=== PATIENT | male | born 1970 | race Caucasian/White ===

== ENCOUNTER 2018-04-23 13:15 | Outpatient (RCR) | payer MEDICARE, SELFPAY ==
[2018-04-23 14:04] VITALS: BP 152/100; PULSE 105; RESP 20; TEMP 36.6
--- NOTE | 2018-04-23 16:50 | PCM.WC.HP ---
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 4 weeks. They started with blisters opening on left leg. He has been treated here for similar problem and did not want his wounds to become as bad as they were previously so he referred himself here for treatment. He has been putting hydrogel and adaptic and covering them with gauze. He has been using tubigrips but they are not helping with swelling as much as they had previously. He has used spandigrip in past as well. He has been unable to tolerate or properly apply compression stockings. His vascular studies from December 2015 showed that he has incompetent left GSV but otherwise unremarkable and no evidence of significant arterial disease. He has not been taking any of his medications until recently due to loss of precription medication coverage. He denies any signs of infection currently. Has been elevating his feet often. Past Medical History Past Medical History: Chronic Problems Peripheral arterial disease (Chronic) Hypertension (Chronic) H/O myocardial infarction, greater than 8 weeks (Chronic) Lymphedema of both lower extremities (Chronic) Hyperlipidemia (Chronic) Venous stasis ulcer of left lower extremity (Chronic) CAD (coronary artery disease) (Chronic) Type 2 diabetes mellitus (Chronic) Surgical History: - - left meniscal repair, B CTR, umbilical hernia repair, heart cath and stent x1 Allergies/Adverse Reactions: Allergies cefazolin sodium [From Ancef] Allergy (Verified 12/19/15 15:22) Hives Home Medications: Ambulatory Orders Medication Instructions Recorded Clopidogrel Bisulfate [Plavix] 75 mg PO DAILY 12/19/15 Furosemide [Lasix] 40 mg PO DAILY 12/19/15 Lisinopril [Zestril] 20 mg PO DAILY 12/19/15 Metformin HCl [Metformin HCl ER] 1,000 mg PO BID 12/19/15 Pravastatin [Pravachol] 40 mg PO DAILY 12/19/15 Albuterol Inhaler [Ventolin Hfa 1 - 2 puff INHALATION Q4H PRN PRN 04/11/16 (SP)] - Family History Maternal Cancer Paternal Cancer, Diabetes, Pulmonary Disease, Renal Disease Sibling Diabetes Lives: Alone Smoking Status: Never smoker Tobacco Use: Non-smoker Alcohol: None Drugs: None Review of Systems Constitutional: Denies: Chills, Fever, Weight Change Eyes: Denies: Pain, Vision Change HEENT: Denies: Difficulty Hearing, Difficulty Swallowing, Sinus Congestion Cardiovascular: Reports: Edema. Denies: Chest Pain, Palpitations Respiratory: Denies: Cough, Shortness of Breath Gastrointestinal: Denies: Diarrhea, Nausea, Vomiting Genitourinary: Denies: Dysuria, Hematuria Musculoskeletal: Reports: Back Pain Skin: Reports: Wounds Endocrine: Denies: Heat/ Cold Intolerance, Polydipsia, Polyuria Hematologic/ Lymphatic: Denies: Easy Bruising, Easy Bleeding - Physical Exam Vital Signs Temp Pulse Resp BP 97.8 F 105 H 20 H 152/100 H 04/23/18 14:04 04/23/18 14:04 04/23/18 14:04 04/23/18 14:04 General: Alert, Oriented x3, Cooperative, No apparent distress HEENT: Atraumatic, Normocephalic Oral: Moist Mucosa Neck: Supple Lungs: Clear to auscultation Cardiovascular: Regular rate, Regular Rhythm Abdomen: Soft, Non Tender, Obese Extremities: Diminished Peripheral Pulses, Edema Skin: Ulcer/ Wound Wound Measurements and Assessment WC - Nurse 1 - General Ulcer Measurement Start: 04/23/18 14:00 Freq: Status: Active Protocol: Activity Type Activity Date Activity User E-Sign Co-Sign Detail Recorded Client Recorded Date Recorded By Document 04/23/18 14:04 RI [id number] 04/23/18 14:31 RI 04/23/18 14:04 Wound Center Nurse 1 [Ulcer Assessment] #8 LEFT LATERAL CALF INFERIOR -Combined with other wound No -Current Size (cm) - Length 0.1 -Current Size (cm) - Width 0.1 -Current Size (cm) - Depth 0.1 -Total Square Cm 0.01 -Photo Taken Yes -Epithelialization Large 67-100% -Tunneling No -Undermining/Tunneling No -Circular Undermining No -Exudate Amt None Present (0 %) -Wound Margin Flat & Intact -Granulation Amt Large (67-100%) -Granulation Quality Pale [place] -Slough/Fibrin No -Necrosis Amt None Present (0 %) -Texture (Corry-wound Skin Appearance) Assessed Localized Edema -Moisture (Corry-wound Skin Appearance Assessed ) Dry/Scaly -Color (Corry-wound Skin Appearance) Assessed Hemosiderin Staining -Temperature (Corry-wound Skin No Abnormality Appearance) (Pt Warm) -Tenderness on Palpation (Corry-wound No Skin Appearance) -Ulcer Cleansing Wound Cleanser -Foul Odor after Cleansing No -Anesthetic Used 4% Lidocaine Solution #7 LEFT LATERAL CALF SUPERIOR -Combined with other wound No -Current Size (cm) - Length 0.6 -Current Size (cm) - Width 0.3 -Current Size (cm) - Depth 0.1 -Total Square Cm 0.18 -Photo Taken Yes -Epithelialization Medium 34-66% -Tunneling No -Undermining/Tunneling No -Circular Undermining No -Exudate Amt None Present (0 %) -Wound Margin Flat & Intact -Granulation Amt Large (67-100%) -Granulation Quality Red -Slough/Fibrin No -Texture (Corry-wound Skin Appearance) Assessed Localized Edema -Moisture (Corry-wound Skin Appearance Assessed ) Maceration -Color (Corry-wound Skin Appearance) Assessed Hemosiderin Staining -Temperature (Corry-wound Skin No Abnormality Appearance) (Pt Warm) -Tenderness on Palpation (Corry-wound Yes Skin Appearance) -Ulcer Cleansing Wound Cleanser -Foul Odor after Cleansing No -Anesthetic Used 4% Lidocaine Solution [Edema Assessment] -Right Calf (cm) 52 -Right Ankle (cm) 33 -Left Calf (cm) 54 -Left Ankle (cm) 33 WC - Nurse 2 - General Ulcer CM Notes Start: 04/23/18 14:00 Freq: Status: Active Protocol: Activity Type Activity Date Activity User E-Sign Co-Sign Detail Recorded Client Recorded Date Recorded By Document 04/23/18 15:04 MW [id number] 04/23/18 15:10 MW 04/23/18 15:04 Wound Center Nurse 2 [Procedure/Treatment] #8 LEFT LATERAL CALF INFERIOR -Time 15:05 -Correct Patient Yes -Correct Side, Site, Position Yes -Correct Procedure Yes -Procedure Performed Yes -Type of Procedure Debridement -Clinical Debridement Selective -Post Debridement Size (cm) - Length 0 -Post Debridement Size (cm) - Width 0 -Post Debridement Size (cm) - Depth 0 -Total Square Cm 0 -Wound/Ulcer Outcome Not Healed -Ulcer Cleansing Rinsed/ Irrigated with Saline -Foul Odor after Cleansing No -Bioengineered Tissue No -Bleeding Controlled with Pressure -Treatment Response Procedure Tolerated Well #7 LEFT LATERAL CALF SUPERIOR -Time 15:05 -Correct Patient Yes -Correct Side, Site, Position Yes -Correct Procedure Yes -Procedure Performed Yes -Type of Procedure Debridement -Clinical Debridement Subcutaneous -Post Debridement Size (cm) - Length 0.5 -Post Debridement Size (cm) - Width 0.5 -Post Debridement Size (cm) - Depth 0.1 -Total Square Cm 0.25 -Wound/Ulcer Outcome Not Healed -Ulcer Cleansing Rinsed/ Irrigated with Saline -Foul Odor after Cleansing No -Bioengineered Tissue No -Bleeding Controlled with Pressure -Treatment Response Procedure Tolerated Well [See Physician Procedure note for Specifics] Pain Scale: 0-10 Numeric [Pain] -Is Patient Pain Free? Yes Psych/Mental Status: Normal Affect, Appropriate Debridement Note Post-Debridement Measurements/Treatment WC - Nurse 2 - General Ulcer CM Notes Start: 04/23/18 14:00 Freq: Status: Active Protocol: Activity Type Activity Date Activity User E-Sign Co-Sign Detail Recorded Client Recorded Date Recorded By Document 04/23/18 15:04 MW [id number] 04/23/18 15:10 MW 04/23/18 15:04 Wound Center Nurse 2 #8 LEFT LATERAL CALF INFERIOR -Time 15:05 -Correct Patient Yes -Correct Side, Site, Position Yes -Correct Procedure Yes -Procedure Performed Yes -Type of Procedure Debridement -Clinical Debridement Selective -Post Debridement Size (cm) - Length 0 -Post Debridement Size (cm) - Width 0 -Post Debridement Size (cm) - Depth 0 -Total Square Cm 0 -Wound/Ulcer Outcome Not Healed -Ulcer Cleansing Rinsed/ Irrigated with Saline -Foul Odor after Cleansing No -Bioengineered Tissue No -Bleeding Controlled with Pressure -Treatment Response Procedure Tolerated Well #7 LEFT LATERAL CALF SUPERIOR -Time 15:05 -Correct Patient Yes -Correct Side, Site, Position Yes -Correct Procedure Yes -Procedure Performed Yes -Type of Procedure Debridement -Clinical Debridement Subcutaneous -Post Debridement Size (cm) - Length 0.5 -Post Debridement Size (cm) - Width 0.5 -Post Debridement Size (cm) - Depth 0.1 -Total Square Cm 0.25 -Wound/Ulcer Outcome Not Healed -Ulcer Cleansing Rinsed/ Irrigated with Saline -Foul Odor after Cleansing No -Bioengineered Tissue No -Bleeding Controlled with Pressure -Treatment Response Procedure Tolerated Well Pain Scale: 0-10 Numeric Is Patient Pain Free? Yes Wound debrided: left lateral calf inferior Laterality: Left Type of Debridement: Selective debridement Anesthesia Used: 4% Lidocaine Solution Depth: Down to and including healthy tissue Percentage of wound debrided: 100 Instrument Used: 7mm curette Tissue Removed: devitalized tissue Severity: Limited To Skin Breakdown Amount of bleeding with debridement: None Patient tolerated procedure well - Additional Wound Wound debrided: left lateral lower leg superior Laterality: Left Type of Debridement: Excisional debridement Anesthesia Used: 4% Lidocaine Solution Depth: Down to and including healthy tissue, in the subcutaneous layer Percentage of wound debrided: 100 Instrument Used: 7mm curette Tissue Removed: devitalized tissue, yellow slough Severity: Fat Layer Exposed Amount of bleeding with debridement: Mild Bleeding Controlled with: Compression and gauze Patient tolerated procedure: Patient tolerated procedure well Assessment/Plan Active Problems Lymphedema of both lower extremities (Chronic) Venous stasis ulcer of left lower extremity (Chronic) Type 2 diabetes mellitus (Chronic) Assessment: Left lower extremity venous ulcers Plan: Tee's ulcers were evaluated and debrided as above. The inferior ulcer is healed after selective debridement. The superior ulcer is small and healthy appearing with derbridement of slough. He has significant edema b/l. Will have him continue using tubigrip compression but did discuss Farrow wraps as an alternative. He is agreeable to trying this. Will order these through [employer]. He is aware that the [employer] will be contacting him to discuss ordering and delivering this to his home. Discussed importance of elevating legs to prevent edema. Diet and weight loss was discussed and encouraged. He was advised to acll if any increase in drainage, erythema or odor or fever, chills occur. He will follow up in 1 week.
--- NOTE | 2018-04-23 16:56 | HP.PCM_ITS ---
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 4 weeks. They started with blisters opening on left leg. He has been treated here for similar problem and did not want his wounds to become as bad as they were previously so he referred himself here for treatment. He has been putting hydrogel and adaptic and covering them with gauze. He has been using tubigrips but they are not helping with swelling as much as they had previously. He has used spandigrip in past as well. He has been unable to tolerate or properly apply compression stockings. His vascular studies from December 2015 showed that he has incompetent left GSV but otherwise unremarkable and no evidence of significant arterial disease. He has not been taking any of his medications until recently due to loss of precription medication coverage. He denies any signs of infection currently. Has been elevating his feet often. Past Medical History Past Medical History: Chronic Problems Peripheral arterial disease (Chronic) Hypertension (Chronic) H/O myocardial infarction, greater than 8 weeks (Chronic) Lymphedema of both lower extremities (Chronic) Hyperlipidemia (Chronic) Venous stasis ulcer of left lower extremity (Chronic) CAD (coronary artery disease) (Chronic) Type 2 diabetes mellitus (Chronic) Surgical History: - - left meniscal repair, B CTR, umbilical hernia repair, heart cath and stent x1 Allergies/Adverse Reactions: Allergies cefazolin sodium [From Ancef] Allergy (Verified 12/19/15 15:22) Hives Home Medications: Ambulatory Orders Medication Instructions Recorded Clopidogrel Bisulfate [Plavix] 75 mg PO DAILY 12/19/15 Furosemide [Lasix] 40 mg PO DAILY 12/19/15 Lisinopril [Zestril] 20 mg PO DAILY 12/19/15 Metformin HCl [Metformin HCl ER] 1,000 mg PO BID 12/19/15 Pravastatin [Pravachol] 40 mg PO DAILY 12/19/15 Albuterol Inhaler [Ventolin Hfa 1 - 2 puff INHALATION Q4H PRN PRN 04/11/16 (SP)] - Family History Maternal Cancer Paternal Cancer, Diabetes, Pulmonary Disease, Renal Disease Sibling Diabetes Lives: Alone Smoking Status: Never smoker Tobacco Use: Non-smoker Alcohol: None Drugs: None Review of Systems Constitutional: Denies: Chills, Fever, Weight Change Eyes: Denies: Pain, Vision Change HEENT: Denies: Difficulty Hearing, Difficulty Swallowing, Sinus Congestion Cardiovascular: Reports: Edema. Denies: Chest Pain, Palpitations Respiratory: Denies: Cough, Shortness of Breath Gastrointestinal: Denies: Diarrhea, Nausea, Vomiting Genitourinary: Denies: Dysuria, Hematuria Musculoskeletal: Reports: Back Pain Skin: Reports: Wounds Endocrine: Denies: Heat/ Cold Intolerance, Polydipsia, Polyuria Hematologic/ Lymphatic: Denies: Easy Bruising, Easy Bleeding - Physical Exam Vital Signs Temp Pulse Resp BP 97.8 F 105 H 20 H 152/100 H 04/23/18 14:04 04/23/18 14:04 04/23/18 14:04 04/23/18 14:04 General: Alert, Oriented x3, Cooperative, No apparent distress HEENT: Atraumatic, Normocephalic Oral: Moist Mucosa Neck: Supple Lungs: Clear to auscultation Cardiovascular: Regular rate, Regular Rhythm Abdomen: Soft, Non Tender, Obese Extremities: Diminished Peripheral Pulses, Edema Skin: Ulcer/ Wound Wound Measurements and Assessment WC - Nurse 1 - General Ulcer Measurement Start: 04/23/18 14:00 Freq: Status: Active Protocol: Activity Type Activity Date Activity User E-Sign Co-Sign Detail Recorded Client Recorded Date Recorded By Document 04/23/18 14:04 LA [id number] 04/23/18 14:31 LA 04/23/18 14:04 Wound Center Nurse 1 [Ulcer Assessment] #8 LEFT LATERAL CALF INFERIOR -Combined with other wound No -Current Size (cm) - Length 0.1 -Current Size (cm) - Width 0.1 -Current Size (cm) - Depth 0.1 -Total Square Cm 0.01 -Photo Taken Yes -Epithelialization Large 67-100% -Tunneling No -Undermining/Tunneling No -Circular Undermining No -Exudate Amt None Present (0 %) -Wound Margin Flat & Intact -Granulation Amt Large (67-100%) -Granulation Quality Pale [place] -Slough/Fibrin No -Necrosis Amt None Present (0 %) -Texture (Corry-wound Skin Appearance) Assessed Localized Edema -Moisture (Corry-wound Skin Appearance Assessed ) Dry/Scaly -Color (Corry-wound Skin Appearance) Assessed Hemosiderin Staining -Temperature (Corry-wound Skin No Abnormality Appearance) (Pt Warm) -Tenderness on Palpation (Corry-wound No Skin Appearance) -Ulcer Cleansing Wound Cleanser -Foul Odor after Cleansing No -Anesthetic Used 4% Lidocaine Solution #7 LEFT LATERAL CALF SUPERIOR -Combined with other wound No -Current Size (cm) - Length 0.6 -Current Size (cm) - Width 0.3 -Current Size (cm) - Depth 0.1 -Total Square Cm 0.18 -Photo Taken Yes -Epithelialization Medium 34-66% -Tunneling No -Undermining/Tunneling No -Circular Undermining No -Exudate Amt None Present (0 %) -Wound Margin Flat & Intact -Granulation Amt Large (67-100%) -Granulation Quality Red -Slough/Fibrin No -Texture (Corry-wound Skin Appearance) Assessed Localized Edema -Moisture (Corry-wound Skin Appearance Assessed ) Maceration -Color (Corry-wound Skin Appearance) Assessed Hemosiderin Staining -Temperature (Corry-wound Skin No Abnormality Appearance) (Pt Warm) -Tenderness on Palpation (Corry-wound Yes Skin Appearance) -Ulcer Cleansing Wound Cleanser -Foul Odor after Cleansing No -Anesthetic Used 4% Lidocaine Solution [Edema Assessment] -Right Calf (cm) 52 -Right Ankle (cm) 33 -Left Calf (cm) 54 -Left Ankle (cm) 33 WC - Nurse 2 - General Ulcer CM Notes Start: 04/23/18 14:00 Freq: Status: Active Protocol: Activity Type Activity Date Activity User E-Sign Co-Sign Detail Recorded Client Recorded Date Recorded By Document 04/23/18 15:04 MW [id number] 04/23/18 15:10 MW 04/23/18 15:04 Wound Center Nurse 2 [Procedure/Treatment] #8 LEFT LATERAL CALF INFERIOR -Time 15:05 -Correct Patient Yes -Correct Side, Site, Position Yes -Correct Procedure Yes -Procedure Performed Yes -Type of Procedure Debridement -Clinical Debridement Selective -Post Debridement Size (cm) - Length 0 -Post Debridement Size (cm) - Width 0 -Post Debridement Size (cm) - Depth 0 -Total Square Cm 0 -Wound/Ulcer Outcome Not Healed -Ulcer Cleansing Rinsed/ Irrigated with Saline -Foul Odor after Cleansing No -Bioengineered Tissue No -Bleeding Controlled with Pressure -Treatment Response Procedure Tolerated Well #7 LEFT LATERAL CALF SUPERIOR -Time 15:05 -Correct Patient Yes -Correct Side, Site, Position Yes -Correct Procedure Yes -Procedure Performed Yes -Type of Procedure Debridement -Clinical Debridement Subcutaneous -Post Debridement Size (cm) - Length 0.5 -Post Debridement Size (cm) - Width 0.5 -Post Debridement Size (cm) - Depth 0.1 -Total Square Cm 0.25 -Wound/Ulcer Outcome Not Healed -Ulcer Cleansing Rinsed/ Irrigated with Saline -Foul Odor after Cleansing No -Bioengineered Tissue No -Bleeding Controlled with Pressure -Treatment Response Procedure Tolerated Well [See Physician Procedure note for Specifics] Pain Scale: 0-10 Numeric [Pain] -Is Patient Pain Free? Yes Psych/Mental Status: Normal Affect, Appropriate Debridement Note Post-Debridement Measurements/Treatment WC - Nurse 2 - General Ulcer CM Notes Start: 04/23/18 14:00 Freq: Status: Active Protocol: Activity Type Activity Date Activity User E-Sign Co-Sign Detail Recorded Client Recorded Date Recorded By Document 04/23/18 15:04 MW [id number] 04/23/18 15:10 MW 04/23/18 15:04 Wound Center Nurse 2 #8 LEFT LATERAL CALF INFERIOR -Time 15:05 -Correct Patient Yes -Correct Side, Site, Position Yes -Correct Procedure Yes -Procedure Performed Yes -Type of Procedure Debridement -Clinical Debridement Selective -Post Debridement Size (cm) - Length 0 -Post Debridement Size (cm) - Width 0 -Post Debridement Size (cm) - Depth 0 -Total Square Cm 0 -Wound/Ulcer Outcome Not Healed -Ulcer Cleansing Rinsed/ Irrigated with Saline -Foul Odor after Cleansing No -Bioengineered Tissue No -Bleeding Controlled with Pressure -Treatment Response Procedure Tolerated Well #7 LEFT LATERAL CALF SUPERIOR -Time 15:05 -Correct Patient Yes -Correct Side, Site, Position Yes -Correct Procedure Yes -Procedure Performed Yes -Type of Procedure Debridement -Clinical Debridement Subcutaneous -Post Debridement Size (cm) - Length 0.5 -Post Debridement Size (cm) - Width 0.5 -Post Debridement Size (cm) - Depth 0.1 -Total Square Cm 0.25 -Wound/Ulcer Outcome Not Healed -Ulcer Cleansing Rinsed/ Irrigated with Saline -Foul Odor after Cleansing No -Bioengineered Tissue No -Bleeding Controlled with Pressure -Treatment Response Procedure Tolerated Well Pain Scale: 0-10 Numeric Is Patient Pain Free? Yes Wound debrided: left lateral calf inferior Laterality: Left Type of Debridement: Selective debridement Anesthesia Used: 4% Lidocaine Solution Depth: Down to and including healthy tissue Percentage of wound debrided: 100 Instrument Used: 7mm curette Tissue Removed: devitalized tissue Severity: Limited To Skin Breakdown Amount of bleeding with debridement: None Patient tolerated procedure well - Additional Wound Wound debrided: left lateral lower leg superior Laterality: Left Type of Debridement: Excisional debridement Anesthesia Used: 4% Lidocaine Solution Depth: Down to and including healthy tissue, in the subcutaneous layer Percentage of wound debrided: 100 Instrument Used: 7mm curette Tissue Removed: devitalized tissue, yellow slough Severity: Fat Layer Exposed Amount of bleeding with debridement: Mild Bleeding Controlled with: Compression and gauze Patient tolerated procedure: Patient tolerated procedure well Assessment/Plan Active Problems Lymphedema of both lower extremities (Chronic) Venous stasis ulcer of left lower extremity (Chronic) Type 2 diabetes mellitus (Chronic) Assessment: Left lower extremity venous ulcers Plan: Tee's ulcers were evaluated and debrided as above. The inferior ulcer is healed after selective debridement. The superior ulcer is small and healthy appearing with derbridement of slough. He has significant edema b/l. Will have him continue using tubigrip compression but did discuss Farrow wraps as an alternative. He is agreeable to trying this. Will order these through [email or web address]. He is aware that the [employer] will be contacting him to discuss ordering and delivering this to his home. Discussed importance of elevating legs to prevent edema. Diet and weight loss was discussed and encouraged. He was advised to acll if any increase in drainage, erythema or odor or fever, chills occur. He will follow up in 1 week.
== END 2018-04-28 23:59 ==
LOC: WC 13:15
PROVIDERS: Family Provider Nurse Practitioner Family; PCP Nurse Practitioner Family; Visit Provider Family Medicine
DX: I83.022 Varicose veins of left lower extremity with ulcer of calf (principal); E11.622 Type 2 diabetes mellitus with other skin ulcer; I83.028 Varicose veins of left lower extremity with ulcer other part of lower leg; L97.822 Non-pressure chronic ulcer of other part of left lower leg with fat layer exposed; L97.222 Non-pressure chronic ulcer of left calf with fat layer exposed; I89.0 Lymphedema, not elsewhere classified; E11.51 Type 2 diabetes mellitus with diabetic peripheral angiopathy without gangrene; I10 Essential (primary) hypertension; I25.2 Old myocardial infarction; E78.5 Hyperlipidemia, unspecified; I25.10 Atherosclerotic heart disease of native coronary artery without angina pectoris; Z79.899 Other long term (current) drug therapy; Z79.02 Long term (current) use of antithrombotics/antiplatelets; Z79.84 Long term (current) use of oral hypoglycemic drugs
CPT/HCPCS: 11042; 97597; 99213; G0463

== ENCOUNTER 2018-05-14 13:00 | Outpatient (RCR) | payer MEDICARE, SELFPAY ==
[2018-04-29 02:05] VITALS: BP 152/100; PULSE 105; RESP 20; TEMP 36.6
== END 2018-05-28 23:59 ==
LOC: WC 13:00
PROVIDERS: Family Provider Nurse Practitioner Family; PCP Nurse Practitioner Family; Visit Provider Family Medicine
DX: Z09 Encounter for follow-up examination after completed treatment for conditions other than malignant neoplasm (principal)

== ENCOUNTER 2018-06-25 11:30 | Outpatient (RCR) | payer SELFPAY ==
[2018-05-29 01:40] VITALS: BP 152/100; PULSE 105; RESP 20; TEMP 36.6
[2018-06-11 11:06] VITALS: BP 151/79; PULSE 92; RESP 20; TEMP 36.8; BMI 57.4
--- NOTE | 2018-06-11 12:38 | HP.PCM_ITS ---
(1) Nonhealing nonsurgical wound limited to breakdown of skin Status: Acute Current Visit: Yes Code(s): T14.8XXA - Other injury of unspecified body region, initial encounter (2) CAD (coronary artery disease) Status: Chronic Current Visit: No Code(s): I25.10 - Atherosclerotic heart disease of [place] coronary artery without angina pectoris (3) H/O myocardial infarction, greater than 8 weeks Status: Chronic Current Visit: No Code(s): I25.2 - Old myocardial infarction (4) Lymphedema of both lower extremities Status: Chronic Current Visit: Yes Code(s): I89.0 - Lymphedema, not elsewhere classified (5) Peripheral arterial disease Status: Chronic Current Visit: Yes Code(s): I73.9 - Peripheral vascular disease, unspecified (6) Type 2 diabetes mellitus Status: Chronic Current Visit: Yes Qualifiers: Code(s): E11.9 - Type 2 diabetes mellitus without complications History of Present Illness Chief Complaint: Traumatic wound left lateral lower leg History of Wound: 47-year-old white male obese is history of diabetes and some peripheral vascular disease and peripheral arterial disease noncompliant with his diabetes with a traumatic opening on his left lateral lower leg Past Medical History Past Medical History: Chronic Problems Peripheral arterial disease (Chronic) Hypertension (Chronic) H/O myocardial infarction, greater than 8 weeks (Chronic) Lymphedema of both lower extremities (Chronic) Hyperlipidemia (Chronic) Venous stasis ulcer of left lower extremity (Chronic) CAD (coronary artery disease) (Chronic) Type 2 diabetes mellitus (Chronic) Past Medical History: Nonhealing nonsurgical wound left lower leg Surgical History: - - left meniscal repair, B CTR, umbilical hernia repair, heart cath and stent x1 Allergies/Adverse Reactions: Allergies cefazolin sodium [From Ancef] Allergy (Verified 12/19/15 15:22) Hives Home Medications: Ambulatory Orders Medication Instructions Recorded Clopidogrel Bisulfate [Plavix] 75 mg PO DAILY 12/19/15 Furosemide [Lasix] 40 mg PO DAILY 12/19/15 Lisinopril [Zestril] 20 mg PO DAILY 12/19/15 Metformin HCl [Metformin HCl ER] 1,000 mg PO BID 12/19/15 Pravastatin [Pravachol] 40 mg PO DAILY 12/19/15 Albuterol Inhaler [Ventolin Hfa 1 - 2 puff INHALATION Q4H PRN PRN 10/14/16 (SP)] - Family History Maternal Cancer Paternal Cancer, Diabetes, Pulmonary Disease, Renal Disease Sibling Diabetes Smoking Status: Never smoker Tobacco Use: Non-smoker Review of Systems Constitutional: Denies: Chills, Fever Eyes: Denies: Blurred vision, Drainage, Pain HEENT: Denies: Difficulty Hearing, Difficulty Swallowing, Sore Throat, Visual Changes Cardiovascular: Denies: Chest Pain, Palpitations, Syncope Respiratory: Denies: Cough, Shortness of Breath Gastrointestinal: Denies: Abdominal Pain, Nausea, Vomiting Genitourinary: Denies: Dysuria, Frequency Musculoskeletal: Denies: Joint Pain, Muscle pain Skin: Reports: Wounds, - - Left lateral lower leg wound. Denies: Jaundice, Rash Neurological: Denies: Balance problems, Change in Speech, Difficulty swallowing, Focal weakness Psychiatric: Denies: Anxiety, Depression Endocrine: Denies: Change in Body Habitus Hematologic/ Lymphatic: Denies: Adenopathy - Physical Exam Vital Signs Temp Pulse Resp BP 98.2 F 92 20 H 151/79 H 06/11/18 11:06 06/11/18 11:06 06/11/18 11:06 06/11/18 11:06 General: Oriented x3, Cooperative, Well developed HEENT: Atraumatic, PERRLA Oral: Moist Mucosa Neck: Supple, No JVD Lungs: Clear to auscultation, Normal air movement Cardiovascular: Regular rate, Regular Rhythm Abdomen: Bowel Sounds Present, Soft, Non Tender, No Hepato-splenomegaly Extremities: No clubbing, Edema, - - Left lateral lower leg wound Skin: Ulcer/ Wound Wound Measurements and Assessment WC - Nurse 1 - General Ulcer Measurement Start: 06/11/18 11:06 Freq: Status: Active Protocol: Activity Type Activity Date Activity User E-Sign Co-Sign Detail Recorded Client Recorded Date Recorded By Document 06/11/18 11:06 AN [id number] 06/11/18 11:34 AN 06/11/18 11:06 Wound Center Nurse 1 [Ulcer Assessment] #9 left lateral lower leg -Current Size (cm) - Length 0.7 -Current Size (cm) - Width 0.4 -Current Size (cm) - Depth 0.1 -Total Square Cm 0.28 -Date of Last Picture (Recall this 06/11/18 field) -Epithelialization None Present -Tunneling No -Undermining/Tunneling No -Circular Undermining No -Classification - Thickness Full Thickness without Exposed Support Structure -Exudate Amt Small (1-33%) -Exudate Type Serous -Wound Margin Distinct, Outline Attached -Granulation Amt Large (67-100%) -Granulation Quality Red -Slough/Fibrin Yes -Necrosis Amt Small (1-33%) -Necrotic Tissue Type Adherent Slough -Structure Exposed Fat Layer Exposed -Texture (Corry-wound Skin Appearance) Assessed -Moisture (Corry-wound Skin Appearance No Abnormality ) -Color (Corry-wound Skin Appearance) No Abnormality -Temperature (Corry-wound Skin No Abnormality Appearance) (Pt Warm) -Tenderness on Palpation (Corry-wound Yes Skin Appearance) -Ulcer Cleansing Rinsed/ Irrigated with Saline -Foul Odor after Cleansing No -Anesthetic Used 4% Lidocaine Solution [Edema Assessment] -Right Calf (cm) 51.7 -Right Ankle (cm) 31.5 -Left Calf (cm) 52.5 -Left Ankle (cm) 31.5 WC - Nurse 2 - General Ulcer CM Notes Start: 06/11/18 11:06 Freq: Status: Active Protocol: Activity Type Activity Date Activity User E-Sign Co-Sign Detail Recorded Client Recorded Date Recorded By Document 06/11/18 12:05 MW [id number] 06/11/18 12:06 MW 06/11/18 12:05 Wound Center Nurse 2 [Procedure/Treatment] #9 left lateral lower leg -Time 12:05 -Correct Patient Yes -Correct Side, Site, Position Yes -Correct Procedure Yes -Procedure Performed Yes -Type of Procedure Debridement -Clinical Debridement Subcutaneous -Post Debridement Size (cm) - Length 0.7 -Post Debridement Size (cm) - Width 0.4 -Post Debridement Size (cm) - Depth 0.1 -Total Square Cm 0.28 -Wound/Ulcer Outcome Not Healed -Ulcer Cleansing Rinsed/ Irrigated with Saline -Foul Odor after Cleansing No -Bioengineered Tissue No -Bleeding Controlled with Pressure -Offloading No -Treatment Response Procedure Tolerated Well [See Physician Procedure note for Specifics] Pain Scale: 0-10 Numeric [Pain] -Is Patient Pain Free? Yes Musculoskeletal: No Tenderness to Palpation of Joints or Extremities Lymphatic: No Cervical, Supraclavicular, or Inguinal Adenopathy Neurological: Cranial nerves II-XII grossly intact, Neuro grossly intact Psych/Mental Status: Normal Affect, Appropriate Debridement Note Post-Debridement Measurements/Treatment WC - Nurse 2 - General Ulcer CM Notes Start: 06/11/18 11:06 Freq: Status: Active Protocol: Activity Type Activity Date Activity User E-Sign Co-Sign Detail Recorded Client Recorded Date Recorded By Document 06/11/18 12:05 MW [id number] 06/11/18 12:06 MW 06/11/18 12:05 Wound Center Nurse 2 #9 left lateral lower leg -Time 12:05 -Correct Patient Yes -Correct Side, Site, Position Yes -Correct Procedure Yes -Procedure Performed Yes -Type of Procedure Debridement -Clinical Debridement Subcutaneous -Post Debridement Size (cm) - Length 0.7 -Post Debridement Size (cm) - Width 0.4 -Post Debridement Size (cm) - Depth 0.1 -Total Square Cm 0.28 -Wound/Ulcer Outcome Not Healed -Ulcer Cleansing Rinsed/ Irrigated with Saline -Foul Odor after Cleansing No -Bioengineered Tissue No -Bleeding Controlled with Pressure -Offloading No -Treatment Response Procedure Tolerated Well Pain Scale: 0-10 Numeric Is Patient Pain Free? Yes Wound debrided: Left lateral lower leg wound Anesthesia Used: 5% Lidocaine Gel Depth: Down to and including healthy tissue Percentage of wound debrided: 100 Instrument Used: 3mm curette Tissue Removed: Fibrin Severity: Limited To Skin Breakdown Amount of bleeding with debridement: Mild Patient tolerated procedure well Assessment/Plan Active Problems Nonhealing nonsurgical wound limited to breakdown of skin (Acute) Peripheral arterial disease (Chronic) Lymphedema of both lower extremities (Chronic) Type 2 diabetes mellitus (Chronic) Assessment: L lower nonhealing nonsurgical wound. Bilateral lower extremity edema. Lymphedema. Diabetes type 2 noncompliant uncontrolled Plan: Wash left lateral lower leg with Hibiclens. Apply the Aquacel silver to wound base cover with Adaptic gauze and dressing daily. Follow-up in 1 week. Continue wearing his juxta FISH hose
[2018-06-25 11:13] VITALS: BP 157/83; PULSE 93; RESP 16; TEMP 36.9; BMI 57.4
--- NOTE | 2018-06-25 11:52 | PCM.WC.PN ---
(1) Nonhealing nonsurgical wound limited to breakdown of skin Status: Acute Current Visit: Yes Code(s): T14.8XXA - Other injury of unspecified body region, initial encounter (2) CAD (coronary artery disease) Status: Chronic Current Visit: Yes Code(s): I25.10 - Atherosclerotic heart disease of [place] coronary artery without angina pectoris (3) H/O myocardial infarction, greater than 8 weeks Status: Chronic Current Visit: No Code(s): I25.2 - Old myocardial infarction (4) Lymphedema of both lower extremities Status: Chronic Current Visit: Yes Code(s): I89.0 - Lymphedema, not elsewhere classified (5) Peripheral arterial disease Status: Chronic Current Visit: Yes Code(s): I73.9 - Peripheral vascular disease, unspecified (6) Type 2 diabetes mellitus Status: Chronic Current Visit: Yes Qualifiers: Code(s): E11.9 - Type 2 diabetes mellitus without complications Type of Wound Chief Complaint: Traumatic wound left lateral lower leg History of Wound: 47-year-old white male obese is history of diabetes and some peripheral vascular disease and peripheral arterial disease noncompliant with his diabetes with a traumatic opening on his left lateral lower leg Progress of Wound: Today the wound is healed - Physical Exam Vital Signs Temp Pulse Resp BP 98.4 F 93 16 157/83 H 06/25/18 11:13 06/25/18 11:13 06/25/18 11:13 06/25/18 11:13 General: Oriented x3, Cooperative, Well developed HEENT: Atraumatic, PERRLA Oral: Moist Mucosa Neck: Supple, No JVD Lungs: Clear to auscultation, Normal air movement Cardiovascular: Regular rate, Regular Rhythm Abdomen: Bowel Sounds Present, Soft, Non Tender, No Hepato-splenomegaly Extremities: No clubbing, No edema, - - Left lower leg wound Wound Measurements and Assessment WC - Nurse 1 - General Ulcer Measurement Start: 06/11/18 11:06 Freq: Status: Active Protocol: Activity Type Activity Date Activity User E-Sign Co-Sign Detail Recorded Client Recorded Date Recorded By Document 06/25/18 11:13 [id number] 06/25/18 11:15 06/25/18 11:13 Wound Center Nurse 1 [Ulcer Assessment] #9 left lateral lower leg -Combined with other wound No -Current Size (cm) - Length 0.1 -Current Size (cm) - Width 0.1 -Current Size (cm) - Depth 0.1 -Total Square Cm 0.01 -Date of Last Picture (Recall this 06/25/18 field) -Photo Taken Yes -Epithelialization Large 67-100% -Tunneling No -Undermining/Tunneling No -Circular Undermining No -Exudate Amt None Present (0 %) -Texture (Corry-wound Skin Appearance) Assessed Scarring -Moisture (Corry-wound Skin Appearance Dry/Scaly ) -Color (Corry-wound Skin Appearance) Assessed -Temperature (Corry-wound Skin No Abnormality Appearance) (Pt Warm) -Tenderness on Palpation (Corry-wound No Skin Appearance) -Ulcer Cleansing Rinsed/ Irrigated with Saline -Foul Odor after Cleansing No [Edema Assessment] -Lower Limb Edema Present Yes -Left Calf (cm) 49.5 -Left Ankle (cm) 32.5 WC - Nurse 2 - General Ulcer CM Notes Start: 06/11/18 11:06 Freq: Status: Active Protocol: Activity Type Activity Date Activity User E-Sign Co-Sign Detail Recorded Client Recorded Date Recorded By Document 06/25/18 11:22 MW [id number] 06/25/18 11:24 MW 06/25/18 11:22 Wound Center Nurse 2 [Procedure/Treatment] #9 left lateral lower leg -Time 11:23 -Correct Patient Yes -Correct Side, Site, Position Yes -Correct Procedure Yes -Procedure Performed No -Post Debridement Size (cm) - Length 0 -Post Debridement Size (cm) - Width 0 -Post Debridement Size (cm) - Depth 0 -Total Square Cm 0 -Wound/Ulcer Outcome Healed- Epithelialized -Ulcer Cleansing Not Cleansed -Foul Odor after Cleansing No -Bioengineered Tissue No -Bleeding Controlled with NA -Offloading No -Treatment Response Procedure Tolerated Well [See Physician Procedure note for Specifics] Musculoskeletal: No Tenderness to Palpation of Joints or Extremities Lymphatic: No Cervical, Supraclavicular, or Inguinal Adenopathy Neurological: Cranial nerves II-XII grossly intact, Neuro grossly intact Psych/Mental Status: Normal Affect, Appropriate Debridement Note Post-Debridement Measurements/Treatment WC - Nurse 2 - General Ulcer CM Notes Start: 06/11/18 11:06 Freq: Status: Active Protocol: Activity Type Activity Date Activity User E-Sign Co-Sign Detail Recorded Client Recorded Date Recorded By Document 06/11/18 12:05 MW [id number] 06/11/18 12:06 MW Document 06/25/18 11:22 MW [id number] 06/25/18 11:24 MW 06/11/18 06/25/18 12:05 11:22 Wound Center Nurse 2 #9 left lateral lower leg -Time 12:05 11:23 -Correct Patient Yes Yes -Correct Side, Site, Position Yes Yes -Correct Procedure Yes Yes -Procedure Performed Yes No -Type of Procedure Debridement -Clinical Debridement Subcutaneous -Post Debridement Size (cm) - Length 0.7 0 -Post Debridement Size (cm) - Width 0.4 0 -Post Debridement Size (cm) - Depth 0.1 0 -Total Square Cm 0.28 0 -Wound/Ulcer Outcome Not Healed Healed- Epithelialized -Ulcer Cleansing Rinsed/ Not Cleansed Irrigated with Saline -Foul Odor after Cleansing No No -Bioengineered Tissue No No -Bleeding Controlled with Pressure NA -Offloading No No -Treatment Response Procedure Procedure Tolerated Well Tolerated Well Pain Scale: 0-10 Numeric Is Patient Pain Free? Yes No debridement was completed today Assessment/Plan Active Problems Nonhealing nonsurgical wound limited to breakdown of skin (Acute) Peripheral arterial disease (Chronic) Lymphedema of both lower extremities (Chronic) CAD (coronary artery disease) (Chronic) Type 2 diabetes mellitus (Chronic) Assessment: L lower nonhealing nonsurgical wound resolved. Bilateral lower extremity edema. Lymphedema. Diabetes type 2 noncompliant uncontrolled Plan: Patient is discharged from the wound center continue wearing his CircAid compression stocking to the left leg and a regular stocking to the right leg
--- OUTSIDE RECORDS SUMMARY | 2018-07-28 03:38 | XMS RPT_ITS ---
:1970 Author Organization OHIP Care Team Providers Name Role Phone Malys, Livier Attending Unavailable Fan, Roberta Primary Care Unavailable Malys, Livier Attending Unavailable Fan, Roberta Primary Care Unavailable Malys, Livier Attending Unavailable Fan, Roberta Primary Care Unavailable Malys, Livier Attending Unavailable Fan, Roberta Primary Care Unavailable Tourlas, Quentin Attending Unavailable Fan, Roberta L Primary Care Unavailable Tourlas, Quentin Admitting Unavailable Fan, Roberta L Attending Unavailable Fan, Roberta L Primary Care Unavailable Tourlas, Quentin Attending Unavailable Fan, Roberta L Primary Care Unavailable Tourlas, Quentin Admitting Unavailable Tourlas, Quentin Attending Unavailable Fan, Roberta L Primary Care Unavailable Tourlas, Quentin Admitting Unavailable Tourlas, Quentin Attending Unavailable Fan, Roberta L Primary Care Unavailable Tourlas, Quentin Attending Unavailable Fan, Roberta L Primary Care Unavailable Tourlas, Quentin Attending Unavailable Fan, Roberta L Primary Care Unavailable Tourlas, Quentin Admitting Unavailable Tourlas, Quentin Attending Unavailable Fan, Roberta L Primary Care Unavailable PROBLEMS PROBLEMS No Problem Records FoundPROCEDURES PROCEDURES No Procedure Records FoundRESULTS RESULTS WOUND CTR HISTORY Observed: 06/11/2018 Status: F Source: VETO AND PHYSICAL 12:39 PM REPOSITORY [facility] [address] [place] [address] Wound Ctr History AND Physical 06/11/18 1233 MR#: [id number] Acct: [id number] Name: TEE MI Rep #: [id number] : 1970 47 From: Carla SHEN PCP: AC Cross Status: REG RCR Y Location: WC (1) Nonhealing nonsurgical wound limited to breakdown of skin Status: Acute Current Visit: Yes Code(s): T14.8XXA - Other injury of unspecified body region, initial encounter (2) CAD (coronary artery disease) Status: Chronic Current Visit: No Code(s): I25.10 - Atherosclerotic heart disease of robinson coronary artery without angina pectoris (3) H/O myocardial infarction, greater than 8 weeks Status: Chronic Current Visit: No Code(s): I25.2 - Old myocardial infarction (4) Lymphedema of both lower extremities Status: Chronic Current Visit: Yes Code(s): I89.0 - Lymphedema, not elsewhere classified (5) Peripheral arterial disease Status: Chronic Current Visit: Yes Code(s): I73.9 - Peripheral vascular disease, unspecified (6) Type 2 diabetes mellitus Status: Chronic Current Visit: Yes Qualifiers: Code(s): E11.9 - Type 2 diabetes mellitus without complications History of Present Illness Chief Complaint: Traumatic wound left lateral lower leg History of Wound: 47-year-old white male obese is history of diabetes and some peripheral vascular disease and peripheral arterial disease noncompliant with his diabetes with a traumatic opening on his left lateral lower leg Past Medical History Past Medical History: Chronic Problems Peripheral arterial disease (Chronic) Hypertension (Chronic) H/O myocardial infarction, greater than 8 weeks (Chronic) Lymphedema of both lower extremities (Chronic) Hyperlipidemia (Chronic) Venous stasis ulcer of left lower extremity (Chronic) CAD (coronary artery disease) (Chronic) Type 2 diabetes mellitus (Chronic) Past Medical History: Nonhealing nonsurgical wound left lower leg Surgical History: - - left meniscal repair, B CTR, umbilical hernia repair, heart cath and stent x1 Allergies/Adverse Reactions: Allergies cefazolin sodium [From [facility]] Allergy (Verified 12/19/15 15:22) Hives Home Medications: Ambulatory Orders Medication Instructions Recorded Clopidogrel Bisulfate [Plavix] 75 mg PO DAILY 12/19/15 Furosemide [Lasix] 40 mg PO DAILY 12/19/15 Lisinopril [Zestril] 20 mg PO DAILY 12/19/15 - Family History Maternal Cancer Paternal Cancer, Diabetes, Pulmonary Disease, Renal Disease Sibling Diabetes Smoking Status: Never smoker Tobacco Use: Non-smoker Review of Systems Constitutional: Denies: Chills, Fever Eyes: Denies: Blurred vision, Drainage, Pain HEENT: Denies: Difficulty Hearing, Difficulty Swallowing, Sore Throat, Visual Changes Cardiovascular: Denies: Chest Pain, Palpitations, Syncope Respiratory: Denies: Cough, Shortness of Breath Gastrointestinal: Denies: Abdominal Pain, Nausea, Vomiting Genitourinary: Denies: Dysuria, Frequency Musculoskeletal: Denies: Joint Pain, Muscle pain Skin: Reports: Wounds, - - Left lateral lower leg wound. Denies: Jaundice, Rash Neurological: Denies: Balance problems, Change in Speech, Difficulty swallowing, Focal weakness Psychiatric: Denies: Anxiety, Depression Endocrine: Denies: Change in Body Habitus Hematologic/ Lymphatic: Denies: Adenopathy - Physical Exam Vital Signs Temp Pulse Resp BP 98.2 F 92 20 H 151/79 H 06/11/18 11:06 06/11/18 11:06 06/11/18 11:06 06/11/18 11:06 General: Oriented x3, Cooperative, Well developed HEENT: Atraumatic, PERRLA Oral: Moist Mucosa Neck: Supple, No JVD Lungs: Clear to auscultation, Normal air movement Cardiovascular: Regular rate, Regular Rhythm Abdomen: Bowel Sounds Present, Soft, Non Tender, No Hepato-splenomegaly Extremities: No clubbing, Edema, - - Left lateral lower leg wound Skin: Ulcer/ Wound Wound Measurements and Assessment WC - Nurse 1 - General Ulcer Measurement Start: 06/11/18 11:06 Freq: Status: Active Protocol: Activity Type Activity Date Activity User E-Sign Co-Sign Detail Recorded Client Recorded Date Recorded By Document 06/11/18 11:06 [id number] 06/11/18 11:34 AN Wound Center Nurse 1 [Ulcer Assessment] #9 left lateral lower leg -Current Size (cm) - Length 0.7 -Current Size (cm) - Width 0.4 WC - Nurse 2 - General Ulcer CM Notes Start: 06/11/18 11:06 Freq: Status: Active Protocol: Activity Type Activity Date Activity User E-Sign Co-Sign Detail Recorded Client Recorded Date Recorded By Document 06/11/18 12:05 MW [id number] 06/11/18 12:06 MW Wound Center Nurse 2 [Procedure/Treatment] Musculoskeletal: No Tenderness to Palpation of Joints or Extremities Lymphatic: No Cervical, Supraclavicular, or Inguinal Adenopathy Neurological: Cranial nerves II-XII grossly intact, Neuro grossly intact Psych/Mental Status: Normal Affect, Appropriate Debridement Note Post-Debridement Measurements/Treatment WC - Nurse 2 - General Ulcer CM Notes Start: 06/11/18 11:06 Freq: Status: Active Protocol: Activity Type Activity Date Activity User E-Sign Co-Sign Detail Recorded Client Recorded Date Recorded By Document 06/11/18 12:05 MW [id number] 06/11/18 12:06 MW Wound Center Nurse 2 #9 left lateral lower leg -Time 12:05 -Correct Patient Yes -Correct Side, Site, Position Yes Wound debrided: Left lateral lower leg wound Anesthesia Used: 5% Lidocaine Gel Depth: Down to and including healthy tissue Percentage of wound debrided: 100 Instrument Used: 3mm curette Tissue Removed: Fibrin Severity: Limited To Skin Breakdown Amount of bleeding with debridement: Mild Patient tolerated procedure well Assessment/Plan Active Problems Nonhealing nonsurgical wound limited to breakdown of skin (Acute) Peripheral arterial disease (Chronic) Lymphedema of both lower extremities (Chronic) Type 2 diabetes mellitus (Chronic) Assessment: L lower nonhealing nonsurgical wound. Bilateral lower extremity edema. Lymphedema. Diabetes type 2 noncompliant uncontrolled Plan: Wash left lateral lower leg with Hibiclens. Apply the Aquacel silver to wound base cover with Adaptic gauze and dressing daily. Follow-up in 1 week. Continue wearing his juxta FISH hose 06/11/18 7505 <Electronically signed by Carla SHEN> Date Carla Sultana MILLINERY WORKER-C CC: Signed CBC W/ AUTO DIFF Collected: 04/29/2018 Status: F Source: [facility] 2:14 PM [facility] REPOSITORY TYPE CODE TESTS RESULT OUT OF RANGE REFERENCE UNITS LAB [id number](L 3.6-11.0 E3/mcL OINC) Normal WBC 8.1 LAB [id number](L 3.90-6.10 E6/mcL OINC) Normal RBC 4.71 LAB [id number](L 13.5-18.0 G/DL OINC) Normal Hgb 15.6 LAB [id number](L 42.0-52.0 % OINC) Normal Hct 45.4 LAB 25426614(L 11.5-14.5 % OINC) Normal RDW 13.9 LAB [id number](L 27.0-31.0 pg OINC) High MCH 33.1 LAB [id number](L 33.0-37.0 G/DL OINC) Normal MCHC 34.3 LAB [id number](L 78.0-100.0 fL OINC) Normal MCV 96.5 LAB [id number](L 7.4-11.0 fL OINC) Normal MPV 7.8 LAB [id number](L 130-400 E3/mcL OINC) Normal Platelet 163 Performed By: #### [id number] #### WESLY [employer] [address] [place] [address] AUTO DIFF Collected: 04/29/2018 Status: F Source: [facility] 2:14 PM [facility] REPOSITORY Order Comment: Order Added by Discern Expert. TYPE CODE TESTS RESULT OUT OF RANGE REFERENCE UNITS LAB [id number](L 37.0-75.0 % OINC) Normal Neutro Auto 72.6 LAB [id number](L 20.0-55.0 % OINC) Normal Lymph Auto 20.3 LAB [id number](L 0.0-10.0 % OINC) Normal [place] Auto 5.8 LAB [id number](L 0.0-11.0 % OINC) Normal Eos Auto 1.0 LAB [id number](L 0.0-2.0 % OINC) Normal Basophil Auto 0.3 LAB [id number](L 1.4-6.5 E3/mcL OINC) Normal Neutro 5.8 Absolute LAB [id number](L 1.2-3.4 E3/mcL OINC) Normal Lymph Absolute 1.6 LAB 19605536(L 0.0-0.7 E3/mcL OINC) Normal [place] Absolute 0.5 LAB [id number](L 0.0-0.7 E3/mcL OINC) Normal Eos Absolute 0.1 LAB [id number](L 0.0-0.2 E3/mcL OINC) Normal Basophil 0.0 Absolute Performed By: #### [id number] #### WESLY [employer] [address] [place] [address] LIPID PROFILE Collected: 04/29/2018 Status: F Source: [facility] [place] 2:14 PM [facility] REPOSITORY TYPE CODE TESTS RESULT OUT OF RANGE REFERENCE UNITS LAB [id number](LO 120-200 mg/dL INC) High Chol 221 Result Comment: TOTAL CHOLEESTEROL: <200 NORMAL 200 - 239 BORDERLINE HIGH >240 HIGH LAB 53288749(LOINC) mg/dL Normal HDL 44 LAB [id number](LOINC) 0-130 mg/dL Normal LDL 111 Result Comment: <100 OPTIMAL 100-129 NEAR / ABOVE OPTIMAL 130-159 BORDERLINE HIGH 160-189 HIGH >190 VERY HIGH CALC LDL NOT VALID WHEN TRIGLYCERIDE IS >400 MG/DL LAB [id number](LOINC) 0-150 mg/dL High Trig 330 Result Comment: <150 NORMAL 150-199 BORDERLINE HIGH 200-499 HIGH >500 VERY HIGH LAB [id number](LOINC) Normal VLDL 66 Performed By: #### [id number] #### WESLY [employer] [address] [place] [address] MICROALB/CREAT RATIO Collected: 04/29/2018 Status: F Source: [facility] [place] 2:14 [facility] REPOSITORY TYPE CODE TESTS RESULT OUT OF REFERENCE UNITS RANGE LAB [id number](L 0.0-1.9 mg/dL OINC) Ur High Microalbumin 5.1 LAB 17327963(L 20.0-300.0 mg/dL OINC) Ur Creat Normal 41.0 LAB [id number](L 0-30 ug/mg OINC) Microalb/Creat High 124 Performed By: #### [id number] #### WESLY [employer] [address] [place] [address] TSH Collected: 04/29/2018 Status: F Source: [facility] [place] 2:14 PM [facility] REPOSITORY TYPE CODE TESTS RESULT OUT OF RANGE REFERENCE UNITS LAB [id number](LO 0.30-5.60 mcIU/mL INC) Normal TSH 2.96 Performed By: #### [id number] #### WESLY [employer] [address] [place] [address] HGBA1C Collected: 04/29/2018 Status: F Source: [facility] [place] 2:14 PM [facility] REPOSITORY TYPE CODE TESTS RESULT OUT OF REFERENCE UNITS RANGE LAB [id number]( 4.0-6.3 % LOINC) High Hemoglobin A1c 10.2 Performed By: #### [id number] #### WESLY Chemistry Manual Subsection [address] [place] [address] WOUND CTR HISTORY Observed: 04/23/2018 Status: F Source: [facility] PHYSICAL 5:14 PM [facility] REPOSITORY [facility] [address] [place] [address] Wound Ctr History AND Physical 04/23/18 1650 MR#: [id number] Acct: [id number] Name: TEE MI Rep #: [id number] : 1970 47 From: Livier Collier DO PCP: AC Cross Status: REG RCR Y Location: (1) Lymphedema of both lower extremities Status: Chronic Current Visit: Yes Code(s): I89.0 - Lymphedema, not elsewhere classified (2) Venous stasis ulcer of left lower extremity Status: Chronic Current Visit: Yes Code(s): I83.029 - Varicose veins of left lower extremity with ulcer of unspecified site (3) Type 2 diabetes mellitus Status: Chronic Current Visit: Yes Qualifiers: Diabetes mellitus fci insulin use: unspecified supervisor building maintenance insulin use status Diabetes mellitus complication status: with hyperglycemia Qualified Code(s): E11.65 - Type 2 diabetes mellitus with hyperglycemia Code(s): E11.9 - Type 2 diabetes mellitus without complications History of Present Illness Date of Service: 04/23/18 Chief Complaint: venous ulcers left lower leg History of Wound: Tee is here for evaluation and treatment of ulcers of his left lower leg which have been present for approx. 4 weeks. They started with blisters opening on left leg. He has been treated here for similar problem and did not want his wounds to become as bad as they were previously so he referred himself here for treatment. He has been putting hydrogel and adaptic and covering them with gauze. He has been using tubigrips but they are not helping with swelling as much as they had previously. He has used spandigrip in past as well. He has been unable to tolerate or properly apply compression stockings. His vascular studies from December 2015 showed that he has incompetent left GSV but otherwise unremarkable and no evidence of significant arterial disease. He has not been taking any of his medications until recently due to loss of precription medication coverage. He denies any signs of infection currently. Has been elevating his feet often. Past Medical History Past Medical History: Chronic Problems Peripheral arterial disease (Chronic) Hypertension (Chronic) H/O myocardial infarction, greater than 8 weeks (Chronic) Lymphedema of both lower extremities (Chronic) Hyperlipidemia (Chronic) Venous stasis ulcer of left lower extremity (Chronic) CAD (coronary artery disease) (Chronic) Type 2 diabetes mellitus (Chronic) Surgical History: - - left meniscal repair, B CTR, umbilical hernia repair, heart cath and stent x1 Allergies/Adverse Reactions: Allergies cefazolin sodium [From [facility]] Allergy (Verified 12/19/15 15:22) Hives Home Medications: Ambulatory Orders Medication Instructions Recorded Clopidogrel Bisulfate [Plavix] 75 mg PO DAILY 12/19/15 Furosemide [Lasix] 40 mg PO DAILY 12/19/15 Lisinopril [Zestril] 20 mg PO DAILY 12/19/15 - Family History Maternal Cancer Paternal Cancer, Diabetes, Pulmonary Disease, Renal Disease Sibling Diabetes Lives: Alone Smoking Status: Never smoker Tobacco Use: Non-smoker Alcohol: None Drugs: None Review of Systems Constitutional: Denies: Chills, Fever, Weight Change Eyes: Denies: Pain, Vision Change HEENT: Denies: Difficulty Hearing, Difficulty Swallowing, Sinus Congestion Cardiovascular: Reports: Edema. Denies: Chest Pain, Palpitations Respiratory: Denies: Cough, Shortness of Breath Gastrointestinal: Denies: Diarrhea, Nausea, Vomiting Genitourinary: Denies: Dysuria, Hematuria Musculoskeletal: Reports: Back Pain Skin: Reports: Wounds Endocrine: Denies: Heat/ Cold Intolerance, Polydipsia, Polyuria Hematologic/ Lymphatic: Denies: Easy Bruising, Easy Bleeding - Physical Exam Vital Signs Temp Pulse Resp BP 97.8 F 105 H 20 H 152/100 H 04/23/18 14:04 04/23/18 14:04 04/23/18 14:04 04/23/18 14:04 General: Alert, Oriented x3, Cooperative, No apparent distress HEENT: Atraumatic, Normocephalic Oral: Moist Mucosa Neck: Supple Lungs: Clear to auscultation Cardiovascular: Regular rate, Regular Rhythm Abdomen: Soft, Non Tender, Obese Extremities: Diminished Peripheral Pulses, Edema Skin: Ulcer/ Wound Wound Measurements and Assessment WC - Nurse 1 - General Ulcer Measurement Start: 04/23/18 14:00 Freq: Status: Active Protocol: Activity Type Activity Date Activity User E-Sign Co-Sign Detail Recorded Client Recorded Date Recorded By Document 04/23/18 14:04 MT [id number] 04/23/18 14:31 MT Wound Center Nurse 1 [Ulcer Assessment] #8 LEFT LATERAL CALF INFERIOR -Combined with other wound No WC - Nurse 2 - General Ulcer CM Notes Start: 04/23/18 14:00 Freq: Status: Active Protocol: Activity Type Activity Date Activity User E-Sign Co-Sign Detail Recorded Client Recorded Date Recorded By Document 04/23/18 15:04 MW [id number] 04/23/18 15:10 MW Wound Center Nurse 2 [Procedure/Treatment] Psych/Mental Status: Normal Affect, Appropriate Debridement Note Post-Debridement Measurements/Treatment WC - Nurse 2 - General Ulcer CM Notes Start: 04/23/18 14:00 Freq: Status: Active Protocol: Activity Type Activity Date Activity User E-Sign Co-Sign Detail Recorded Client Recorded Date Recorded By Document 04/23/18 15:04 MW [id number] 04/23/18 15:10 MW Wound Center Nurse 2 #8 LEFT LATERAL CALF INFERIOR -Time 15:05 -Correct Patient Yes -Correct Side, Site, Position Yes Wound debrided: left lateral calf inferior Laterality: Left Type of Debridement: Selective debridement Anesthesia Used: 4% Lidocaine Solution Depth: Down to and including healthy tissue Percentage of wound debrided: 100 Instrument Used: 7mm curette Tissue Removed: devitalized tissue Severity: Limited To Skin Breakdown Amount of bleeding with debridement: None Patient tolerated procedure well - Additional Wound Wound debrided: left lateral lower leg superior Laterality: Left Type of Debridement: Excisional debridement Anesthesia Used: 4% Lidocaine Solution Depth: Down to and including healthy tissue, in the subcutaneous layer Percentage of wound debrided: 100 Instrument Used: 7mm curette Tissue Removed: devitalized tissue, yellow slough Severity: Fat Layer Exposed Amount of bleeding with debridement: Mild Bleeding Controlled with: Compression and gauze Patient tolerated procedure: Patient tolerated procedure well Assessment/Plan Active Problems Lymphedema of both lower extremities (Chronic) Venous stasis ulcer of left lower extremity (Chronic) Type 2 diabetes mellitus (Chronic) Assessment: Left lower extremity venous ulcers Plan: Tee's ulcers were evaluated and debrided as above. The inferior ulcer is healed after selective debridement. The superior ulcer is small and healthy appearing with derbridement of slough. He has significant edema b/l. Will have him continue using tubigrip compression but did discuss Farrow wraps as an alternative. He is agreeable to trying this. Will order these through [employer]. He is aware that the company will be contacting him to discuss ordering and delivering this to his home. Discussed importance of elevating legs to prevent edema. Diet and weight loss was discussed and encouraged. He was advised to acll if any increase in drainage, erythema or odor or fever, chills occur. He will follow up in 1 week. 04/23/18 6997 <Electronically signed by Livier Collier DO> Date Livier Collier DO CC: Signed ALLERGIES ALLERGIES DATE TYPE / CODE NAME / CODE REACTION SEVERITY SOURCE 12/19/2015 Drug cefazolin Hives Unknown [facility] Allergy/416 sodium/[id number] [facility] 809822(SNOM 0(RXNORM) Repository ED CT) Drug/151025 Ancef HIVES [facility] ENCOUNTERS ENCOUNTERS ADMIT/DISCHARGE ACCOUNT NUMBER ADMITTING ENCOUNTER LOCATION SOURCE CLASS 07/13/2018 [id number] Ambulatory [facility] ding:[employer] rac Repository 07/13/2018/ [id number] [place] [address] ding:[facility] System racRoom: Repository Room 3 07/09/2018 [id number] [place] [facility] ding:WC Repository 06/25/2018/ [id number] Ambulatory [place] 018 [facility] ding:WC Repository 06/09/2018/ [id number] Ambulatory [address] ding:[employer] System racRoom: Repository Room 3 05/14/2018/ [id number] Ambulatory [place] 018 [facility] ding:WC Repository 04/29/2018/ [id number] [address] ding:[facility] System Repository 04/29/[id number] Repository 04/23/2018/ [id number] Ambulatory [place] 018 [facility] ding:WC Repository 04/19/2018 [id number] [facility] ding:[facility] System rac Repository 04/19/2018/ [id number] [address] ding:[employer] System racRoom: Repository Room 1 12/31/2017/ [id number] [address] ding:[employer] System rac Repository 12/15/2017/ [id number] [address] ding:[facility] System racRoom: Repository Room 2 PAYERS PAYERS ENCOUNTER GUARANTOR PAYER SUBSCRIBER SOURCE 07/13/2018 TEE De Anda Primary TEE De Anda Scientologist [facility] Insurance:Martinez [facility]: [facility] [id number] MEDICARE [id number] System YOANDY MOULTON [facility] Number: YOANDY MOULTON, [facility] [address]Stg: Date:2018-07-13 [id number]: [id number] () Name:CD:[id number] O ()Tel: (000) [address], 000-[address] ([place]) [place] [address]IM: 07/13/2018 TEE A Primary TEE Curiel KERSHNERDOB: Insurance[facility] MED[facility]ARE [id number] System YOANDY MOULTON [facility] Number: YOANDY MOULTON, [place] [address]Grk: Date:2018-06-09Tel: [id number] (HP) Name:CD:[id number] O ()Tel: (000) [address]GSRKCVYVO, 000-0000 ([place]) [place] [address]HV: 07/09/2018 Tee Primary Tee [place] [id number] Yoandy Insurance:[facility] [place] A [facility] [id number] Hospital [address]Yau: (419) Number: Repository [phone] () [id number] Date:2018-04-12 07/09/2018 Secondary NOT GIVENUNK Veto Insurance:SELF PAY [facility] Number: Effective Repository Date:2018-06-29 06/25/2018 Tee Primary NOT GIVENUNK [place] [id number] Yoandy Insurance:SELF PAY [facility] [address]Itp: (018) Number: Effective Repository [phone] () Date:2018-05-29 06/09/2018 TEE A Primary TEE A Scientologist KERJACQUESNERDOB: Insurance:1500 [facility] MED[facility]ARE [id number] System YOANDY KENNEY [facility] Number: YOANDY MOULTON, [place] [address]Xpr: Date:2018-06-09Tel: [id number] (HP) Name:CD:[id number] O (HP)Tel: 000) [address]PKQUVWIGI, 000-0000 ([place]) [place] [address]AQ: 05/14/2018 Tee Primary Tee [id number] Yoandy Insurance:MEDICARE [facility] [place] PART A [facility] [id number] Hospital [address]Xwh: (265) Number: Repository [phone] (HP) [id number] Date:2018-04-12 05/14/2018 Secondary NOT GIVENUNK Veto Insurance:SELF PAY [facility] Number: Effective Repository Date:2018-04-29 04/29/2018 TEE A Primary [facility]EE [facility]MedicarePol [facility] icy Number: Effective [id number] System YOANDY MOULTON, Date:2018-04-29 [facility], [facility] [id number] [place] [address]Ldj: Name:CD:[id number] [address] [address]Hxe: [id number], [place] (HP) [id number]: (101) (HP) 000-0000 ([place]) 04/29/2018 TEE Primary TEE University [facility]: Insurance:MedicarePol [facility]: [facility] icy Number: [id number] Repository YOANDY KENNEY, [id number] [place], [place] [id number]: Date:Plan Name:[facility] [phone]: A (HP) (HP) 04/29/2018 Secondary TEE University Insurance:MedicarePol [facility] Hospitals icy Number: [id number] Repository [id number] [facility], Date:Plan Name:[facility] [id number]: B (HP) 04/23/2018 Tee Primary Tee Veto [id number] Yoandy Insurance:MEDICARE KershnerDOB: [facility] [place] PART A [facility] [id number] Hospital [address]Tro: (419) Number: Repository [phone] () [id number] Date:2018-04-12 04/23/2018 Secondary NOT GIVENUNK Veto Insurance:SELF PAY [facility] Number: Effective Repository Date:2018-04-12 04/19/2018 TEE A Primary TEE A Scientologist KERSHNERDOB: Insurance:1500 KERNERDOB: [facility] MEDICARE [id number] System YOANDY MOULTON [facility] Number: YOANDY MOULTON, [place] [address]Wnk: Date:2018-04-19Tel: [id number] () Name:[id number] O ()Tel: (000) [address], 000-0000 ([place]) [place] [address]LU: 04/19/2018 TEE A Primary TEE A Scientologist KERSHNERDOB: Insurance:1500 KERNERDOB: [facility] MEDICARE [id number] System YOANDY MOULTON [facility] Number: YOANDY CYBO, [place] [address]Not: Date:[id number]: [id number] (HP) Name:[id number] O ()Tel: (000) [address], 000-0000 ([place]) [place] [address]AF: 12/31/2017 TEE A Primary TEE A Scientologist KERSHNERDOB: Insurance:1500 KERSHNERDOB: [facility] MEDICARE [id number] System YOANDY FRDE [facility]TON[facility] Number: YOANDY MOULTON, Repository [place] [phone]: Effective [place] [phone]: Date:2017-12-15 - (HP) [id number] (HP)Tel: (000) Name:[id number] O 000-0000 (WP) [address] [address]KT: 12/15/2017 TEE A Primary TEE A [facility]: Insurance:[address] [place] [address]: [facility] [id number] MEDICARE [id number] System [facility] Number: YOANDY MOULTON, Repository [place] [id number]: Effective [place] [phone]: Date:2017-12-07 - (HP) [id number] (HP)Tel: (000) Name:[id number] O 000-0000 (WP) [address] [address]PC:
== END 2018-06-28 23:59 ==
LOC: WC 11:30
PROVIDERS: Family Provider Nurse Practitioner Family; PCP Nurse Practitioner Family; Visit Provider Family Medicine
DX: E11.622 Type 2 diabetes mellitus with other skin ulcer (principal); E11.51 Type 2 diabetes mellitus with diabetic peripheral angiopathy without gangrene; I25.10 Atherosclerotic heart disease of native coronary artery without angina pectoris; I25.2 Old myocardial infarction; I89.0 Lymphedema, not elsewhere classified; Z91.19 Patient's noncompliance with other medical treatment and regimen; L97.821 Non-pressure chronic ulcer of other part of left lower leg limited to breakdown of skin; E11.65 Type 2 diabetes mellitus with hyperglycemia
CPT/HCPCS: 11042; 99212; G0463